=== PATIENT | male | born 1985 | race Caucasian/White ===

== ENCOUNTER → 2019-07-11 | Outpatient (CLI) | payer OTHER ==
--- NOTE | 2019-07-11 16:03 | XR ---
EXAMINATION TYPE: XR chest 2V DATE OF EXAM: 07/11/2019 COMPARISON: NONE HISTORY: Cough and shortness of breath TECHNIQUE: Frontal and lateral views of the chest are obtained. FINDINGS: Poor inspiration. There is no focal air space opacity, pleural effusion, or pneumothorax s een. The cardiac silhouette size is within normal limits. The osseous structures are intact. IMPRESSION: Poor inspiration. No acute focal consolidation. Consider repeat exam with improved inspiration.
== END | disposition home or self-care (01) ==
LOC: CPPFTMAIN 13:35
PROVIDERS: ATTEND Family Medicine
DX: R05 Cough (principal)
CPT/HCPCS: 71046; 94060; 94726; 94729

== ENCOUNTER → 2022-04-07 | Outpatient (CLI) | payer BC ==
--- NOTE | 2022-04-07 09:05 | CT ---
EXAMINATION TYPE: CT chest w con DATE OF EXAM: 04/07/2022 COMPARISON: X-ray dated 07/11/2019 HISTORY: Disorder of bone, mass on chest CT DLP: 997.2 mGycm Automated exposure control for dose reduction was used. TECHNIQUE: CT scan of the chest is performed with IV Contrast, patient injected with 100 mL of Isovue 300. FINDINGS: LUNGS: Minimal right lower lobe posterior dependent densities and minimal reticulations. Grossly unre markable lungs otherwise. Patent central airways. No pleural effusion. MEDIASTINUM: Subcentimeter bilateral axillary lymph nodes, nonspecific. No pathologically enlarged hi lar or mediastinal lymph nodes. No gross cardiomegaly. No pericardial effusion. Patent major mediasti nal vessels. OTHER: A marker was placed at the area of interest along the medial aspect of the left upper chest w all. At that location, there is a fatty lesion measuring 5.6 x 6.5 x 5.8 cm, arising from the medial aspect of the left pectoralis major muscle and extending to the adjacent subcutaneous fat causing foc al skin bulge likely representing a lipoma. No definite calcification, cystic component or gross soft tissue component. Questionable septation is seen at the deep portion of the lipoma. Suspected hepati c steatosis. Tiny splenic hypodensity, possibly representing a splenic cyst. Mild bony spinal canal s tenosis is seen at T11-12 level. IMPRESSION: The described fatty lesion along the medial aspect of the left upper chest wall likely represents a l ipoma with possible deep septation as described above. Recommend surgical consultation. Other finding s as described above.
== END | disposition home or self-care (01) ==
LOC: RADCTMAIN 07:36
PROVIDERS: ATTEND Surgery
DX: R22.2 Localized swelling, mass and lump, trunk (principal); M89.9 Disorder of bone, unspecified
CPT/HCPCS: 71260; Q9967

== ENCOUNTER 2022-05-22 06:30 | Day surgery (SDC) | payer BC ==
[2022-05-21 08:17] VITALS: BMI 37.5
[~2022-05-22 06:30] MED LIST: ACETAMINOPHEN TAB 500 MG TAB PO PRN; DEXAMETHASONE SOD PHOSPHATE 4 MG/ML 1 ML VIAL IV ONE; HEPARIN SODIUM,PORCINE/PF 5,000 UNIT/0.5 ML SYRINGE SQ PRN; LACTATED RINGERS 1,000 ML IV SCH; MIDAZOLAM 2 MG/2 ML VIAL IV PRN; ONDANSETRON 4 MG/2 ML VIAL IVP ONE; Pre Op ABX Message 1 EACH MISC MISCELLANE ONE; SCOPOLAMINE 1 MG/72 HR PATCH TRANSDERM ONE
[2022-05-22] MEDS ORDERED: HYDROmorphone 0.5 MG/0.5 ML SYRINGE IVP PRN (07:00)
[2022-05-22] MEDS ORDERED: PROPOFOL 10 MG/ML 20 ML VIAL IV ONE (07:35)
[2022-05-22] MEDS ORDERED: MIDAZOLAM 2 MG/2 ML VIAL ONE (07:35)
[2022-05-22] MEDS ORDERED: SUCCINYLCHOLINE CHLORIDE VIAL 200 MG/10 ML VIAL IV ONE (07:35)
[2022-05-22] MEDS ORDERED: PHENYLEPHRINE-0.9% NACL SYG 1,000 MCG/10 ML SYRINGE ONE (07:35)
[2022-05-22] MEDS ORDERED: fentaNYL (PF) 50 MCG/ML 2 ML AMP ONE (07:35)
[2022-05-22] MEDS ORDERED: ePHEDrine 50 MG/ML 1 ML VIAL ONE (07:35)
[2022-05-22] MEDS ORDERED: LIDOCAINE 2% INJ 20 MG/ML (2 ML VIAL) ONE ×2 (07:35)
--- NOTE | 2022-05-22 07:37 | P.GSHP ---
History of Present Illness H&P Date: 05/22/22 Chief Complaint: Left chest wall lipoma 36-year-old male describes an increasing mass left chest wall for the last 1 year. No history of known trauma. No prior biopsies. Mild soreness at times. CAT scan was ordered which shows a lipomatous mass extending just deep to the fascia of the pectoralis. Here today for surgical excision. Past Medical History Past Medical History: No Reported History History of Any Multi-Drug Resistant Organisms: None Reported Additional Past Surgical History / Comment(s): Left arm surgery. Past Anesthesia/Blood Transfusion Reactions: No Reported Reaction Past Psychological History: No Psychological Hx Reported Smoking Status: Never smoker Past Alcohol Use History: None Reported Past Drug Use History: None Reported - Past Family History Mother Family Medical History: No Reported History Medications and Allergies Home Medications Medication Instructions Recorded Confirmed Type No Known Home Medications 05/21/22 05/22/22 History Allergies Allergy/AdvReac Type Severity Reaction Status Date / Time No Known Allergies Allergy Verified 05/22/22 07:00 Surgical - Exam Vital Signs Temp Pulse Resp BP Pulse Ox 98.3 F 98 16 161/84 95 05/22/22 07:03 05/22/22 07:03 05/22/22 07:03 05/22/22 07:03 05/22/22 07:03 Physical exam: General: Well-developed, well-nourished HEENT: Normocephalic, sclerae nonicteric Chest: 6 x 4 cm mass anterior left chest wall left parasternal border, nontender, no overlying skin changes, no adenopathy left axilla or left supraclavicular Abdomen: Nontender, nondistended Extremities: No edema Neuro: Alert and oriented Assessment and Plan (1) Lipoma of anterior chest wall Narrative/Plan: 36-year-old male with lipoma left chest wall. We'll proceed with surgical excision at this time. Risks of bleeding, infection, scarring, seroma, numbness, recurrence, possibly for further surgery reviewed. He understands wished to proceed. Current Visit: Yes Status: Acute Code(s): D17.1 - BENIGN LIPOMATOUS NEOPLASM OF SKIN, SUBCU OF TRUNK SNOMED Code(s): 247472801
[2022-05-22] MEDS ORDERED: ceFAZolin 3 GM in SODIUM CHLORIDE 0.9% 100 ML IVPB ONE (07:45)
[2022-05-22] MEDS ORDERED: SODIUM CHLORIDE 0.9% 100 ML with ceFAZolin 2,000 MG IV ONE ×2 (07:53)
[2022-05-22] MEDS ORDERED: BUPIVACAIN-EPI 0.25%-1:200,000 30 ML VIAL SQ ONE ×2 (08:02→08:12)
[2022-05-22] MEDS ORDERED: HYDROcodone/APAP 5-325MG 1 EACH TAB PO PRN (08:38)
[2022-05-22] MEDS ORDERED: NALOXONE 0.4 MG/ML 1 ML VIAL IV PRN (08:38)
[2022-05-22 08:48] VITALS: TEMP 97.4
--- NOTE | 2022-05-22 08:48 | P.OP ---
Date of Procedure: 05/22/22 Procedure(s) Performed: PREOPERATIVE DIAGNOSIS: Left anterior chest wall lipoma POSTOPERATIVE DIAGNOSIS: Same PROCEDURE: Excision left anterior chest wall lipoma with intermediate closure SURGEON: Maria Guadalupe EBL: Lucy Dunlap ANESTHESIA: Gen. COMPLICATIONS: None OPERATIVE PROCEDURE: Patient place in the operating table in the supine position. The patient was placed under general anesthesia. A horizontal incision was made overlying the palpable mass. Subcutaneous tissues were divided using electrocautery. A large lipomatous mass was identified and carefully dissected to the pectoralis fascia where the lipomatous mass was noted to penetrate. The majority of the lipoma was anterior to the fascia however approximately 2-3 cm was deep to the fascia. This was able to be removed without difficulty in one piece. This was sent to pathology for close examination. The operative site was inspected for bleeding and none was seen. Lipoma measured approximately asked by 5 cm in size. A drain was placed deep to the subcutaneous tissues. This exited inferiorly and laterally. This was sutured to the skin using a 4-0 nylon stitch. Subcutaneous tissues were closed using a combination of 3-0 and 2-0 Vicryl sutures. Skin was closed using a running 4-0 Monocryl suture. Skin glue and sterile dressings were applied. Length of the intermediate closure 6 cm. DISPOSITION: Stable to recovery room
[2022-05-22 09:11] LABS: Glucose,Whole Blood 158 mg/dL (70-110)
[2022-05-22] MEDS ORDERED: ONDANSETRON 4 MG/2 ML VIAL IVP ONE ×2 (09:11→11:11)
[2022-05-22] MEDS ORDERED: METOCLOPRAMIDE 5 MG/ML 2 ML VIAL IVP ONE (09:13)
[2022-05-22] MEDS ORDERED: LACTATED RINGERS 1,000 ML IV ONE (10:06)
[2022-05-22] MEDS ORDERED: ONDANSETRON 4 MG/2 ML VIAL ONE (11:06)
[2022-05-22 11:27] VITALS: RESP 18
[2022-05-22 12:30] VITALS: BP 124/69; PULSE 89
== END 2022-05-22 12:31 | disposition home or self-care (01) ==
LOC: OR 06:30
PROVIDERS: ATTEND Surgery
DX: D17.1 Benign lipomatous neoplasm of skin and subcutaneous tissue of trunk (principal); E66.01 Morbid (severe) obesity due to excess calories
CPT/HCPCS: 88304; 21552; J2250; J0330; J1100; J2765; J2405; J0690; J3010; J2370; J2704; J1790; J1644; J2001